=== PATIENT | male | born 1930 | race Caucasian/White ===

== ENCOUNTER 2017-03-31 14:44 | Observation (INO) ==
[2017-03-31] MEDS ORDERED: ZOFRAN IV ONE ×3 (15:13→18:04)
[2017-03-31] MEDS ORDERED: NS 1,000 ML IV ONE ×2 (15:35→18:04)
[2017-03-31 16:44] LABS: MANUAL DIFF NEEDED? NO; URINE CULTURE NEEDED? NO; URINE MICRO REVIEW NEEDED? NO; URINE SOURCE CLEAN CATCH
[2017-03-31 17:01] LABS: BASO% 0.3 % (0.0-0.8); EOS% 1.1 % (0.0-10.0); HEMATOCRIT 40.4 % (42.0-52.0); HEMOGLOBIN 13.8 g/dL (14.0-18.0); IMM GRAN# 0.02 X1000 (0.0-0.04); IMM GRAN% 0.2 % (0.0-0.5); LYMPH# 1.38 X1000 (1.2-3.4); LYMPH% 15.6 % (20.5-51.1); MCH 33.8 PG (27-31); MCHC 34.2 g/dL (33-37); MONO# 0.64 X1000 (0.11-0.59); MONO% 7.2 % (1.7-9.3); MPV 10.7 FL (7.4-10.4); NEUT% 75.6 % (42.2-75.2); PLT 183 X1000 (130-400); RBC 4.08 XMIL (4.7-6.1)
[2017-03-31 17:04] LABS: BILIRUBIN URINE NEGATIVE (NEGATIVE); BLOOD URINE NEGATIVE (NEGATIVE); COLOR YELLOW; GLUCOSE URINE NEGATIVE (NEGATIVE); LEUKOCYTES URINE NEGATIVE (NEGATIVE); NITRITE URINE NEGATIVE (NEGATIVE); PH URINE 7.5; PROTEIN URINE 50 mg/dL (NEGATIVE); TURBIDITY URINE CLEAR (CLEAR); UR EPITHELIAL CELLS <10 /HPF (<10); URINE BACTERIA NEGATIVE /HPF; URINE RBC <10 /HPF (<10); URINE WBC <10 /HPF (<10); UROBILINOGEN URINE NORMAL (NORMAL)
[2017-03-31 17:16] LABS: AGAP 18; ALBUMIN 3.9 g/dL (3.5-5.0); ALKALINE PHOSPHATASE 64 U/L (32-122); BUN 18 mg/dL (8-22); CHLORIDE 94 mmol/L (98-107); COSMO 262; GOT 24 U/L (10-34); GPT 12 U/L (10-44); POTASSIUM 4.1 mmol/L (3.5-5.1); SODIUM 129 mmol/L (136-145); TCO2 17 mmol/L (25-35); TOTAL BILIRUBIN 0.85 mg/dL (0.20-1.00); TOTAL PROTEIN 6.6 g/dL (6.3-8.3)
--- NOTE | 2017-03-31 19:45 | Diag Imaging Result Doc PS360 ---
EXAM: ABDOMEN FLAT/UPRIGHT HISTORY: Intractable nausea, diarrhea TECHNIQUE: Flat and upright two views COMMENT: There is gas throughout the small bowel and colon. There is gas in the rectum. There is no evidence for organomegaly or mass. There are phleboliths in the pelvis. IMPRESSION: Ileus. Electronically signed by Mariusz Bales 03/31/2017 7:43 PM
[2017-03-31] MEDS ORDERED: ZOFRAN IV PRN (20:48)
[2017-03-31] MEDS: NS 1,000 ML IV SCH (21:12)
--- NOTE | 2017-03-31 21:52 | HISTORY AND PHYSICAL ---
CHIEF COMPLAINT: Intractable diarrhea and nausea. HISTORY OF PRESENT ILLNESS: An 86-year-old white male with a very complicated past medical history presents for evaluation of above-mentioned symptoms. Current history of present illness began yesterday. Patient states he had an echocardiogram scheduled and presented to the hospital for evaluation without incident. Upon completion, patient returned home. In the late afternoon patient describes developing intermittent abdominal cramping. He denies additional symptoms at that time. Patient has a history of celiac disease and has had multiple episodes of cramping in the past, thus he was not alarmed. Throughout the night he awoke with severe cramping. This morning he woke with persistent symptoms, but these proved to be nonlimiting. The patient ate breakfast without incident. Upon completing, he went to the restroom to brush his teeth and developed an episode of incontinent diarrhea. The patient denies hematochezia or melena. The patient has not had a similar episode in the past. After this occurrence, patient had multiple additional episodes prompting a call to my office. Because of the severity of symptoms, patient was referred to the emergency department. Upon arrival, patient was noted to have persistent loose stools as well as profound weakness. Full laboratory evaluation was performed without significant pathology. Because of the persistent nature of his symptoms patient will be admitted to the hospital for full evaluation and management of these symptoms. Of note, patient denies fevers, chills, dysuria, hematuria, and pyuria. He has had intermittent nausea since yesterday. Today he has had several episodes of vomiting. He denies sick contacts to his knowledge. PAST MEDICAL HISTORY: 1. History of an abnormal EKG with first-degree AV block and intermittent premature atrial contractions. 2. Allergic rhinitis. 3. 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 4. Iron-deficiency anemia. 5. Anxiety. 6. Asthma. 7. Cataracts status post bilateral removal in 2008. 8. Cholecystitis status post laparoscopic cholecystectomy in 2013. 9. Recurrent sinusitis. 10. Migraine headaches. 11. Hypertension. 12. Hyponatremia. 13. Irritable bowel syndrome. 14. Low back pain. 15. Celiac disease. 16. Osteoarthritis. 17. Palpitations. 18. History of a basal cell carcinoma of the skin. 19. History of a subdural hematoma. CURRENT MEDICATIONS: 1. Multivitamin daily. 2. Albuterol nebulizer twice daily as needed. 3. Aspirin 81 mg daily. 4. Bentyl 10 mg 3 times daily as needed. 5. Culturelle capsules daily. 6. Excedrin Migraine as needed. 7. Famotidine 1 tablet twice daily as needed. 8. Prilosec 20 mg daily as needed. 9. Pulmicort as needed. 10. Ventolin HFA as needed. 11. Tums as needed. ALLERGIES: Patient states he is allergic to Diflucan which causes a skin rash, Singulair which causes nausea and vomiting, Welchol which causes abdominal discomfort and Zyrtec. SOCIAL HISTORY: Patient denies tobacco or illicit drug use. He drinks approximately 3 drinks per week. 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 He enjoys his grandchildren. He exercises 3 times per week by lifting weights. FAMILY HISTORY: The patient's father passed at age 75 secondary to complications of injuries sustained in automobile accident. He had a history of an acute myocardial infarction at age 67. Patient's mother passed at age 95 secondary to complications of pneumonia. REVIEW OF SYSTEMS: A 12 point review of systems was performed. Pertinent positives and negatives noted in history present illness. PHYSICAL EXAMINATION: VITAL SIGNS: Temperature 98.0 degrees, heart rate 70, respirations 15, blood pressure is 181/71. GENERAL: Well nourished, well developed, no acute distress. HEENT: Normocephalic, atraumatic. Pupils equal, round, reactive to light. Extraocular muscles intact. Sclerae anicteric. [place] conjunctivae. Oral and nasopharynx clear without exudate. NECK: Supple. No lymphadenopathy. No thyromegaly. No bruits auscultated. CARDIOVASCULAR: Regular rate and rhythm. No significant murmurs, rubs, or gallops. PULMONARY: Clear to auscultation bilaterally. ABDOMEN: Soft, slightly distended, nontender. Hyperactive bowel sounds. EXTREMITIES: Moves all extremities well. No significant clubbing, cyanosis, or edema. NEUROLOGIC: Cranial nerves 2-12 grossly intact. Motor and sensory grossly intact. PSYCHOLOGIC: Examination is appropriate. LABORATORY DATA: White blood cell count 8.83, hemoglobin 13.8, hematocrit 40.4, platelet count 183,000. Sodium 129, potassium 4.1, chloride 94, bicarb 17, BUN 18, creatinine 0.7, glucose 113, calcium 9.0, total bilirubin 0.85, total protein 6.6, albumin 3.9, alkaline phosphatase 64, AST 24, ALT 12. Urinalysis revealed 50 protein otherwise negative. Flat and upright x-ray of the abdomen suggested an underlying ileus. ASSESSMENT AND PLAN: 86-year-old white male with past medical history as noted presents for evaluation of intractable diarrhea with associated nausea. The patient's examination is significant for hyperactive bowel sounds. X-ray, interestingly, suggest an underlying ileus. At this point, I suspect this represents an underlying enteritis, likely viral. We will keep in mind patient does have a longstanding history of \ very sensitive celiac disease. Patient will be admitted to hospital for full evaluation and management of this condition. 1. Admit to General Medicine. 2. Intractable loose stools-as above, patient has been unable to control his movement. As above, I suspect this represents an underlying enteritis, likely viral. We will check stool studies including Clostridium difficile, cultures, fecal white blood cells and Hemoccult. For now we will continue supportive care. 3. Intractable nausea-we will start patient on as needed IV Zofran. We will follow this closely. 4. Recent history of palpitations-we will follow patient with telemetry. We will determine if any arrhythmia is present. 5. Labile hypertension-we will follow patient's blood pressure closely while hospitalized. He currently is untreated. 6. Profound weakness-patient has chronic disease exacerbated by his acute illness. We will encouraged activity. 7. Celiac disease-patient's celiac is very sensitive. He has had difficulty taking multiple medications in the past secondary to gluten within the pill. At this point, I feel would be best served by allowing patient's to bring his home medications. We will follow this. 8. Fluid, electrolytes nutrition. Will monitor electrolytes, normal saline at 75 mL an hour. Patient's is to bring food from home. 9. Prophylaxis. Patient will be placed on SCDs. cc: Wing Matias MD
--- NOTE | 2017-04-01 01:51 | PROVIDER DOCUMENTATION ---
This chart was entered by Colin Garzon Scribe, acting as scribe for Tacho Orr PA. HPI-Abdominal Pain/GI Problem - General Chief Complaint: N/V/D Stated Complaint: N/V/D Time Seen by Provider: 03/31/17 14:49 Source: patient Allergies/Adverse Reactions: Patient Allergies Allergy/AdvReac Type Severity Reaction Status Date / Time epinephrine Allergy Severe ANAPHYLAXIS Verified 03/31/17 15:05 gluten Allergy Severe ANAPHYLAXIS Verified 03/31/17 15:05 procaine HCl * Allergy Severe ANAPHYLAXIS Verified 03/31/17 15:05 [From Novocain] Home Medications: Home Medication List Medication Instructions Recorded Confirmed Last Taken Type Albuterol Sulfate 0.83 mg IH 4XDAY PRN PRN 12/12/13 03/31/17 10/30/16 09:00 History Aspirin 325 mg PO DAILY 10/30/16 03/31/17 10/09/16 History Dicyclomine [Bentyl] 10 mg PO AC + HS PRN 10/30/16 03/31/17 03/31/17 08:00 History L.acidoph,Paracasei, B.lactis 1 each PO DAILY 10/30/16 03/31/17 03/31/17 08:00 History [Probiotic] Diphenhydramine HCl [Antihistamine] 1 tab PO PRN PRN 03/31/17 03/31/17 Unknown History Vitamin B Complex [B Complex] 1 cap PO DAILY 03/31/17 03/31/17 03/31/17 08:00 History - History of Present Illness-ABD Nature of Presenting Problems: Patient is an 86 y/o M that presents to the ER with n/v/d that began this am. patient has had multiple episodes of diarrhea. patient denies fever/chills, chest pain, or shortness of breath. History of Celiac Disease. No new foods Abdominal Pain Onset Location: reports: generalized abdomen Pain Radiation: reports: no radiation Quality of Pain: reports: aching, cramping, pressure Severity in ED: reports: moderate Onset/Duration: reports: abrupt, this morning Timing: reports: still present, constant Activities at Onset: reports: none Exposure to sick contacts?: No Modifying Factors: improves with: nothing Associated Symptoms: reports: diarrhea, nausea, vomiting. denies: back/neck pain, chest pain, constipation, diaphoresis, dizziness, EENT symptoms, fever/ chills, genitourinary problems, malaise, shortness of breath, swelling/mass in abdomen Last BM: other (many today, says almost constant since this am) Rectal Bleeding: reports: none # of Diarrhea Episodes: 10 (more trhan 10) # of Vomiting Episodes: 5 Emesis Description: reports: other Similar Symptoms Previously?: No Recently seen or treated by another doctor?: No Review of Systems - Adult - REVIEW OF SYSTEMS - ADULT Constitutional: denies: chills, fever Eyes: reports: no symptoms reported Ears, Nose, Mouth & Throat: reports: no symptoms reported Cardiovascular: denies: chest pain, orthopnea, palpitations, syncope Respiratory: denies: cough, shortness of breath, wheezing Gastrointestinal: reports: abdominal pain, diarrhea, nausea, vomiting Genitourinary: denies: dysuria, frequency, hematuria, urgency Musculoskeletal: denies: back pain, joint pain, neck pain Integumentary: reports: no symptoms reported Neurological: reports: no symptoms reported Psychiatric: reports: no symptoms reported Endocrine: reports: no symptoms reported Hematologic/Lymphatic: reports: no symptoms reported Allergic/Immunologic: reports: no symptoms reported All Other Systems: Reviewed and Negative Past History - Adult - PAST MEDICAL HISTORY-ADULT Review of Records: reports: Old Records Reviewed, Nursing Assessment Review, Medications Reviewed Gastrointestinal: reports: other (celiac disease) Other Conditions: reports: other cancer (basil cell) - PRIOR SURGERIES/PROCEDURES Surgical/Procedure History: reports: tonsillectomy, other (rectal fistula surgery, subdural hematoma) - IMMUNIZATION STATUS Childhood Immunizations: See Nurse Assessment Flu Vaccine: See Nurse Assessment - FAMILY HISTORY Family History: reviewed, not pertinent - SOCIAL HISTORY Smoking: non-smoker Living Situation: family Physical Exam-General - PHYSICAL EXAM-ADULT Initial Vital Signs Reviewed: Yes - CONSTITUTIONAL General Appearance: alert, moderate distress (vomiting and had to get up in the middle of the exam to go to the bathroom) - EYES Eyes: PERRL/EOMI, pink conjunctivae. negative: sclera injected, scleral icterus - HEAD, EARS, NOSE, MOUTH & THROAT HENMT: normocephalic/atraumatic, moist mucous membranes, normal ENT inspection, pharynx normal. negative: angioedema, dental decay, hearing deficit, pharyngeal erythema, tonsillar exudate - NECK Neck: full range of motion, supple, normal inspection. negative: carotid bruit - RESPIRATORY Respiratory: lungs clear, normal breath sounds, no respiratory distress, no accessory muscle use. negative: crackles, rales, rhonchi, stridor, wheezing - CARDIOVASCULAR Cardiovascular: regular rate, rhythm, no edema, no gallop, no JVD, no murmur - GASTROINTESTINAL (ABDOMEN) Abdominal Exam: soft, no pulsatile mass, distended, tenderness. negative: non tender (diffusely tender), abdominal bruit, guarding, rigid, rebound, McBurney' s point tenderness, He's sign - MUSCULOSKELETAL Back Exam: normal inspection, no CVA tenderness Extremity: non-tender, normal inspection, no pedal edema, no calf tenderness. negative: deformity, erythema, inflammation, joint effusion Peripheral Pulses: radial (R): 3+, radial (L): 3+, dorsalis-pedis (R): 3+, dorsalis-pedis (L): 3+ - SKIN Integumentary: normal color, warm/dry - NEUROLOGIC Neurologic: rn staff II-XII nml as tested, grossly normal - PSYCHIATRIC Psych/Mental Status: normal mood/affect, normal thought content, normal thought process Progress - PLAN OF CARE/RESULTS Progress/Plan/Lab Results: Vital Signs - 8 hr 03/31/17 15:00 Temperature 97.9 F Pulse Rate 67 Respiratory Rate 17 Blood Pressure 135/58 O2 Sat by Pulse Oximetry 99 Result Diagrams: 03/31/17 15:32 03/31/17 15:32 - REASSESSMENT Reassessment #1 Time Reassessed: 16:05 (Called pharmacy to discuss antiemetic that is gluten free. Celiac drug list states that Promethazine is gluten free, but want to verify the plastic production machine setter we have at this pharmacy. They don't think the Phenergan is but isn't listed. Zofran is listed on many celiac meds sites as confirmed gluten free. ) Reassessment #2 Time Reassessed: 17:36 (Discussed with Dr. Shook, recommends discussing with Dr. Matias for possible admission for observation. Paged.) - CONSULTS/PCP/HOSPITALIST Notification #1 *Consult/PCP/Hospitalist*: Dr. Matias, PCP Time Discussed: 17:50 (Will come see pt in the ED after he finishes seeing his patients. ) Consult Disposition: Will see in ED, Admit Departure - Departure Date of Disposition Decision: 03/31/17 Time of Disposition Decision: 18:30 DIAGNOSIS: Celiac disease, Intractable diarrhea Nausea and vomiting Qualifiers: Vomiting type: unspecified Vomiting Intractability: intractable Qualified Code( s): R11.2 - Nausea with vomiting, unspecified Disposition: ADMITTED INPATIENT 09 Certified Medical Emergency: Emergent Condition: Stable - Critical Care Note This patient required my direct & personal management of CC.: No Attestation - Physician/ MARÍA Attestation Patient care was provided by Advanced Practice Provider:: Yes Advanced Practice Provider:: Tacho Orr Advanced Practice Provider documentation review:: The Mid-level provider documentation, treatment plan and medical decision making was reviewed by the physician who agrees with all treatment and medical decision making by the MLP. This chart was documented by the indicated scribe, (Colin Garzon, Scribe) and accurately reflects the services I performed and decisions made by , Tacho Orr PA, as attested by the provider's signature.
[2017-04-01 07:01] LABS: MANUAL DIFF NEEDED? NO
[2017-04-01 07:13] LABS: BASO% 0.3 % (0.0-0.8); EOS% 2.9 % (0.0-10.0); HEMOGLOBIN 11.8 g/dL (14.0-18.0); LYMPH% 20.5 % (20.5-51.1); MCH 33.6 PG (27-31); MCHC 32.8 g/dL (33-37); MCV 102.6 FL (81-99); MONO# 0.64 X1000 (0.11-0.59); MONO% 9.4 % (1.7-9.3); MPV 10.4 FL (7.4-10.4); NEUT% 66.9 % (42.2-75.2); PLT 136 X1000 (130-400); RBC 3.51 XMIL (4.7-6.1)
[2017-04-01 07:45] LABS: AGAP 10; ALBUMIN 3.3 g/dL (3.5-5.0); ALKALINE PHOSPHATASE 56 U/L (32-122); BUN 10 mg/dL (8-22); CALCIUM 7.9 mg/dL (8.8-10.2); CHLORIDE 107 mmol/L (98-107); COSMO 273; GOT 17 U/L (10-34); GPT 10 U/L (10-44); POTASSIUM 4.2 mmol/L (3.5-5.1); SODIUM 137 mmol/L (136-145); TCO2 20 mmol/L (25-35); TOTAL BILIRUBIN 1.08 mg/dL (0.20-1.00); TOTAL PROTEIN 5.3 g/dL (6.3-8.3)
[2017-04-01] MEDS: NS 1,000 ML IV SCH (10:47)
[2017-04-01 14:21] VITALS: BP 160/52
--- NOTE | 2017-04-02 10:31 | DISCHARGE SUMMARY ---
ADMISSION DATE: 03/31/2017 DISCHARGE DATE: 04/01/2017 ADMISSION DIAGNOSES: 1. Intractable diarrhea. 2. Intractable nausea. DISCHARGE DIAGNOSES: 1. Intractable diarrhea, improved. 2. Intractable nausea, improved. 3. Profound weakness. 4. Labile hypertension, present on arrival. 5. History of celiac disease, present on arrival. CONSULTATIONS: None. PROCEDURES: A flat and upright of the abdomen was performed on 03/31/2017, which revealed an ileus. HISTORY AND PHYSICAL EXAMINATION: See admit note. PHYSICAL EXAMINATION PRIOR TO DISCHARGE: Vital Signs: Temperature 98.3 degrees, heart rate 50, respirations 16, blood pressure is 139/46. General: Elderly, in no acute distress. Cardiovascular: Regular rhythm, bradycardic rate. No significant murmurs, rubs, or gallops. Pulmonary: Clear to auscultation bilaterally. Abdomen: Soft. Mildly tender diffusely without guarding or rebound. Positive bowel sounds. Extremities: Moves all extremities well. No significant clubbing, cyanosis, or edema. Dermatologic Evaluation: Reveals no evidence of rash. LABORATORY DATA: Prior to discharge white blood cell count 6.82, hemoglobin 11.8, hematocrit 36.0, platelet count 136,000. Sodium 137, potassium 4.2, chloride 107, bicarb 20, BUN 10, creatinine 0.5, glucose 100, calcium 7.9, total bilirubin 1.08, total protein 5.3, albumin 3.3, alkaline phosphatase 56. AST 17, ALT 10. HOSPITAL COURSE: Patient was admitted as per history and physical examination. Hospital course per condition is as follows: 1. Intractable loose stools-upon admission, patient was noted to have intractable loose stools. Unfortunately, the patient had no control of his bowel movements. The patient presented dehydrated secondary to his GI loss. Patient was treated with aggressive hydration. Patient's nausea was treated, as described below. With time, patient's overall condition improved. At time of discharge, patient was without significant diarrhea. We will follow this closely as an outpatient. 2. Intractable nausea-upon admission, patient was noted to have considerable nausea. He was treated with as needed IV Zofran with adequate response while hospitalized. 3. Profound weakness-upon admission, patient was noted to be profoundly weak secondary to a combination of chronic disease and his acute illness. Physical therapy was consulted. It was suggested that patient needed a front wheeled walker and home physical therapy. We will continue this as an outpatient. 4. Labile hypertension-patient has longstanding disease. Blood pressure remained reasonably controlled while hospitalized. We will continue to follow. 5. Celiac disease-patient has a long-standing history of celiac disease. His condition is very sensitive. The patient was continued only on home medications and home diet while hospitalized secondary to his extreme sensitivity. We will continue to follow this as an outpatient. DISCHARGE CONDITION: Good. DISPOSITION: Discharged to home. HOME MEDICATIONS: 1. DuoNeb 4 times daily as needed. 2. Aspirin 81 mg daily. 3. Bentyl 10 mg with meals and at bedtime, as needed. 4. Famotidine 20 mg daily, twice daily as needed. 5. Probiotic daily. 6. Multivitamin with iron daily. 7. Vitamin B complex daily. FOLLOWUP: The patient is to followup with me as arranged. cc: Wing Matias MD
== END 2017-04-01 15:31 | disposition home or self-care (01) ==
LOC: SUPCPDRO → ED 14:44 → 3N 19:58 → INTOOBSV 19:58
PROVIDERS: ADMIT Internal Medicine; ATTEND Internal Medicine